=== PATIENT | female | born 1975 | race Caucasian/White ===

== ENCOUNTER 2017-09-04 07:12 | Outpatient (CLI) | payer OTHER | END 2017-09-04 14:13 | disposition home or self-care (01) | LOC: MRI 07:12 | DX: R42 Dizziness and giddiness (principal) | CPT/HCPCS: 70553 ==

== ENCOUNTER 2018-03-23 07:50 | Outpatient (CLI) | payer OTHER | END 2018-03-23 17:00 | disposition home or self-care (01) | LOC: MAMO-SONO 07:50 | DX: Z12.31 Encounter for screening mammogram for malignant neoplasm of breast (principal); N64.4 Mastodynia ==

== ENCOUNTER → 2019-03-26 | Outpatient (CLI) | payer OTHER | END | disposition home or self-care (01) | LOC: MAMO-SONO 07:40 | DX: Z12.31 Encounter for screening mammogram for malignant neoplasm of breast (principal); Z87.898 Personal history of other specified conditions; N64.4 Mastodynia ==

== ENCOUNTER 2023-05-06 07:47 | Outpatient (CLI) | payer OTHER | END 2023-05-07 14:52 | disposition home or self-care (01) | LOC: MRI 07:47 | DX: M54.12 Radiculopathy, cervical region (principal) | CPT/HCPCS: 72141 ==